=== PATIENT | female | born 1950 | race Caucasian/White ===

== ENCOUNTER 2018-05-26 16:41 | Emergency (ER) | payer OTHER ==
[~2018-05-26] VITALS: Wt 70.0 kg
[2018-05-26] MEDS ORDERED: LIDOCAINE 2% VISC 15 ML CUP PO ONE (17:30)
[2018-05-26] MEDS ORDERED: HYDR-4011 PO (18:52)
[2018-05-26] MEDS ORDERED: LIDO20SO19 PO (18:52)
--- NOTE | 2018-05-26 19:28 | ERD ---
ER Documentation Chief Complaint Chief Complaint FISHBONE STUCK IN THROAT FROM MEAL 30 MINS PRIOR HPI This is a 5-year-old female who is here because she think she is a fishbone stuck in her throat. The patient says she is eating some fish about an hour prior to arrival feels a foreign body sensation in the left side of her upper throat. No shortness of breath no swelling in the neck no difficulty swallowing but there is some pain when she swallows. Pain is sharp. No pain in the chest or abdomen ROS All systems reviewed and are negative except as per history of present illness. Medications Home Meds Active Scripts Lidocaine (Lidocaine Viscous) 100 Ml Soln, 15 ML PO Q3H for pain, #100 Prov:LECATHERINEOSYASHSTOLOS A. DO 05/26/18 Hydrocodone/Acetaminophen ([place] 5-325 Tablet) 1 Each Tablet, 1 TAB PO Q6H PRN for PAIN, #10 TAB Prov:LECATHERINEOSYASHSTOLOS A. DO 05/26/18 Allergies Allergies: Coded Allergies: No Known Allergies (Verified Allergy, Unknown, 05/26/18) PMhx/Soc Medical and Surgical Hx: pt denies Surgical Hx History of Surgery: No Anesthesia Reaction: No Hx Neurological Disorder: No Hx Respiratory Disorders: No Hx Cardiac Disorders: Yes (hyperlipidemia) Hx Psychiatric Problems: No Hx Miscellaneous Medical Probl: No Hx Alcohol Use: No Hx Substance Use: No Hx Tobacco Use: No Smoking Status: Never smoker FmHx Family History: No coronary disease Physical Exam Vitals Vital Signs Date Temp Pulse Resp B/P (MAP) Pulse Ox O2 O2 Flow FiO2 Time Delivery Rate 05/26/18 98.9 63 18 155/64 95 Room Air 17:25 (94) 05/26/18 98.9 66 18 182/86 18 16:48 (118) Physical Exam Const: Well-developed, well-nourished Head: Atraumatic, normocephalic Eyes: Normal Conjunctiva, PERRLA, EOMI, normal sclera, no nystagmus ENT: Normal External Ears, Nose and Mouth, moist mucus membranes. Neck: Full range of motion. No meningismus, no lymphadenopathy. Resp: Clear to auscultation bilaterally, no wheezing, rhonchi, rales Cardio: Regular rate and rhythm, no murmurs, S1 S2 present Abd: Soft, non tender x 4, non distended. Normal bowel sounds, no guarding or rebound, no pulsitile abdominal masses or bruits Skin: No petechiae or rashes, no ecchymosis , no maculopapular rash Back: No midline or flank tenderness Ext: No cyanosis, or edema, FROM x 4, normal inspection, neurovascularly intact x 4 Neur: Awake and alert, STR 5/5 x 4, sensation intact x 4, no focal findings, cerebellum intact Psych: Normal Mood and Affect Results 24 hrs Current Medications Medications Dose Sig/Cecil Start Time Status Last (Trade) Ordered Route PRN Stop Time Admin Dose Reason Admin Lidocaine 15 ml ONCE ONCE 05/26/18 DC 05/26/18 (Xylocaine PO 17:30 17:30 (Viscous)) 05/26/18 17:31 Procedures/MDM MR #: [id number] DOS: 05/26/18 1722 Ordering MD: TSERING HOLBROOK DO Location: E/R Room/Bed: PROCEDURE: CT soft tissue neck without contrast. CLINICAL INDICATION: Fish bone stuck in throat.. TECHNIQUE: The study was performed utilizing a GE 64-slice multidetector CT scanner. Direct thin section helically acquired axial sections were obtained through the neck without contrast. Coronal and sagittal reformations were obtai shabnam. The images were reviewed on a PACS workstation. The CTDIvol is 10.51 mGy and the DLP is 269.35 mGycm. One or more the following dose reduction techniques were utilized: Automated exposure control, adjustment of the mA/ or kV according to patient's size, or use of iterative reconstruction technique. DICOM images are available for review. COMPARISON: No prior studies are available for comparison. FINDINGS: The nasopharynx, oropharynx, hypopharynx, and larynx are all normal in appearance. Focal calcifications are seen within the palatine tonsils bilaterally. Incidental calcification of the stylohyoid ligament is seen b ilaterally. No radiopaque foreign bodies are visualized throughout the mucosal surfaces. The thyroid gland is normal in size with no focal mass lesions seen. The submandibular and parotid glands are unremarkable and normal in appearance. No pathologically enlarged lymph nodes are detected. No osteolytic or blastic lesion is evident. IMPRESSION: Unremarkable noncontrast CT of the neck. Specifically no radiopaque foreign body is seen along the mucosal surfaces. RPTAT:[facility] Physician Josh Date Time Electronically viewed and signed by Juan Carlos Che Physician on 05/26/2018 18:22 RL/ CC: TSERING HOLBROOK DO [id number] There is no evidence of foreign body. The patient likely has an esophageal abrasion from the bone scratching her throat. Treat her here with some viscous lidocaine. Will discharge home with pain medication lidocaine and warning signs to return. Patient feels much better at this time, and vital signs are normal, symptoms have improved. I did give strict instructions to return to the ED if symptoms continue or worsen, patient will otherwise follow-up with primary care physician. Patient understood instructions and agreed to plan. Disclaimer: Inadvertent spelling and grammatical errors are likely due to EHR/dictation software use and do not reflect on the overall quality of patient care. Also, please note that the electronic time recorded on this note does not necessarily reflect the actual time of the patient encounter. Departure Diagnosis: Primary Impression: Esophageal abrasion Encounter type: initial encounter Qualified Codes: S27.818A - Other injury of esophagus (thoracic part), initial encounter Condition: Stable Patient Instructions: Esophageal Spasm Referrals: PRISCILLA CHAVEZ MD, APOSTOLOS A. DO May 26, 2018 19:28
[2018-05-26 19:48] VITALS: BP 149/70; PULSE 64; RESP 16
== END 2018-05-26 19:53 | disposition home or self-care (01) ==
LOC: E/R 16:41
DX: S27.818A Other injury of esophagus (thoracic part), initial encounter (principal); R40.2252 Coma scale, best verbal response, oriented, at arrival to emergency department; R40.2362 Coma scale, best motor response, obeys commands, at arrival to emergency department; R40.2142 Coma scale, eyes open, spontaneous, at arrival to emergency department; X58.XXXA Exposure to other specified factors, initial encounter; Y92.9 Unspecified place or not applicable
CPT/HCPCS: 70490